=== PATIENT | female | born 1995 | race Caucasian/White ===

== ENCOUNTER 2018-05-23 16:07 | Emergency (ER) | payer BC ==
[2018-05-23 16:40] VITALS: RESP 16; TEMP 98.5
--- NOTE | 2018-05-23 16:58 | ED ---
Female Urogenital HPI - General Chief complaint: Vaginal Bleeding Stated complaint: and spotting Time Seen by Provider: 05/23/18 16:45 Source: patient, RN notes reviewed Mode of arrival: ambulatory Limitations: no limitations - History of Present Illness Initial comments: This a 22-year-old female presents emergency Department chief complaint of vaginal spotting early . Patient states that she is 6 weeks . Patient is A0. Patient states that she has mild lower abdominal cramping she does have urinary frequency which is normal for her no dysuria no hematuria. Patient states it is bright red blood. Patient has not contacted a [facility] at this time. Patient denies any diarrhea, constipation, fever, chills, chest pain or shortness breath. Patient has no current nausea vomiting. - Related Data Home Medications Medication Instructions Recorded Confirmed Kua-Csbu-Wloxp Acid 1 cap PO DAILY 05/23/18 05/23/18 [-U Capsule (formulary)] Allergies Allergy/AdvReac Type Severity Reaction Status Date / Time No Known Allergies Allergy Verified 05/23/18 17:05 Review of Systems ROS Statement: Those systems with pertinent positive or pertinent negative responses have been documented in the HPI. ROS Other: All systems not noted in ROS Statement are negative. Past Medical History Past Medical History: No Reported History History of Any Multi-Drug Resistant Organisms: None Reported Past Surgical History: No Surgical Hx Reported Past Psychological History: No Psychological Hx Reported Smoking Status: Never smoker Past Alcohol Use History: None Reported Past Drug Use History: None Reported General Exam Limitations: no limitations General appearance: alert, in no apparent distress Head exam: Present: atraumatic, normocephalic, normal inspection Respiratory exam: Present: normal lung sounds bilaterally. Absent: respiratory distress, wheezes, rales, rhonchi, stridor Cardiovascular Exam: Present: regular rate, normal rhythm, normal heart sounds. Absent: systolic murmur, diastolic murmur, rubs, gallop, clicks GI/Abdominal exam: Present: soft, normal bowel sounds. Absent: distended, tenderness, guarding, rebound, rigid Neurological exam: Present: alert Skin exam: Present: warm, dry, intact, normal color. Absent: rash Course Vital Signs 05/23/18 16:38 Temperature 98.5 F Pulse Rate 91 Respiratory 16 Rate Blood Pressure 114/71 O2 Sat by Pulse 99 Oximetry Medical Decision Making - Medical Decision Making 22-year-old female presents for spotting early . Patient ultrasound shows possible early gestational sac, no heart rate at this time. Patient is A- blood type and will be receiving RhoGAM. Patient advised follow-up with [facility]. Return parameters were discussed. - Lab Data Result diagrams: 05/23/18 17:37 Lab Results 05/23/18 05/23/18 05/23/18 Range/Units 17:37 17:37 17:55 WBC 8.5 (3.8-10.6) k/uL RBC 4.71 (3.80-5.40) m/uL Hgb 14.6 (11.4-16.0) gm/dL Hct 43.1 (34.0-46.0) % MCV 91.7 (80.0-100.0) fL MCH 31.1 (25.0-35.0) pg MCHC 33.9 (31.0-37.0) g/dL RDW 12.5 (11.5-15.5) % Plt Count 275 (150-450) k/uL Neutrophils % 64 % Lymphocytes % 27 % Monocytes % 5 % Eosinophils % 2 % Basophils % 1 % Neutrophils # 5.4 (1.3-7.7) k/uL Lymphocytes # 2.3 (1.0-4.8) k/uL Monocytes # 0.4 (0-1.0) k/uL Eosinophils # 0.2 (0-0.7) k/uL Basophils # 0.0 (0-0.2) k/uL Urine Color Light Yellow Urine Appearance Clear (Clear) Urine pH 7.0 (5.0-8.0) Ur Specific [place] 1.007 (1.001-1.035) Urine Protein Negative (Negative) Urine Glucose (UA) Negative (Negative) Urine Ketones Negative (Negative) Urine Blood Negative (Negative) Urine Nitrite Negative (Negative) Urine Bilirubin Negative (Negative) Urine Urobilinogen <2.0 (<2.0) mg/dL Ur Leukocyte Esterase Trace H (Negative) Urine RBC <1 (0-5) /hpf Urine WBC <1 (0-5) /hpf Ur Squamous Epith Cells 1 (0-4) /hpf Urine Mucus Rare H (None) /hpf Blood Type A Negative Blood Type Recheck CABO Indicated Disposition Clinical Impression: Threatened miscarriage in early Disposition: HOME SELF-CARE Condition: Stable Instructions (If sedation given, give patient instructions): Threatened Miscarriage (ED) Additional Instructions: Please return to the Emergency Department if symptoms worsen or any other concerns. Is patient prescribed a controlled substance at d/c from ED?: No Referrals: Fern Erazo MD [Primary Care Provider] - 1-2 days Time of Disposition: 18:47
[2018-05-23 17:51] LABS: Basophils % (A) 1 %; Eosinophils # (A) 0.2 k/uL (0-0.7); Eosinophils % (A) 2 %; HCT 43.1 % (34.0-46.0); HGB 14.6 gm/dL (11.4-16.0); Lymphocytes # (A) 2.3 k/uL (1.0-4.8); Lymphocytes % (A) 27 %; MCH 31.1 pg (25.0-35.0); MCHC 33.9 g/dL (31.0-37.0); MCV 91.7 fL (80.0-100.0); Mean Platelet Volume 7.5; Monocytes # (A) 0.4 k/uL (0-1.0); Monocytes % (A) 5 %; Neutrophils # (A) 5.4 k/uL (1.3-7.7); Neutrophils % (A) 64 %; Platelet Count 275 k/uL (150-450); RBC 4.71 m/uL (3.80-5.40); RDW 12.5 % (11.5-15.5); WBC 8.5 k/uL (3.8-10.6)
[2018-05-23 18:05] LABS: Appearance,Urine Clear (Clear); Bilirubin,Urine Negative (Negative); Blood,Urine Negative (Negative); Color,Urine Light Yellow; Glucose,Urine (UA) Negative (Negative); Ketones,Urine Negative (Negative); Leukocyte Esterase,Urine Trace (Negative); Mucus,Urine Rare /hpf; Nitrite,Urine Negative (Negative); Protein,Urine Negative (Negative); RBC,Urine <1 /hpf (0-5); Specific Gravity,Urine 1.007 (1.001-1.035); Squamous Epithelial Cell,Urine 1 /hpf (0-4); Urobilinogen,Urine <2.0 mg/dL (<2.0)
[2018-05-23] MEDS ORDERED: Rhogam IMMUNE GLOBULIN 1,500 UNIT/1 ML IM ONE (18:26)
--- NOTE | 2018-05-23 18:42 | US ---
EXAMINATION TYPE: Transabdominal DATE OF EXAM: 05/23/2018 6:04 PM COMPARISON: NONE CLINICAL HISTORY: Pain. Spotting EXAM PERFORMED: Transvaginal (TV) and Transabdominal (TA) EXAM MEASUREMENTS: GESTATIONAL AGE / DATING Physician Established: Not yet established ( Dates by LMP: (6 weeks/1 days) EDC: 01/15/2019 Dates by First Scan: No previous this is first scan Dates by Current Scan for: (5 weeks/0 days) EDC: 01/23/2019 MATERNAL ANATOMY Uterus: 8.2 x 3.9 x 5.9cm Right Ovary: 3.6 x 2.3 x 2.2 cm Left Ovary: 2.3 x 2.5 x 2.5 cm Post CDS / Adnexa: wnl Presence of free fluid: no Presence of corpus luteal cyst: yes right ovary 2.4 x 2.1 x 1.9cm Presence of subchorionic bleed: No GESTATION / SURVEY MSD: 1.02cm (5 weeks/0 days) Yolk Sac (normal less than 6mm): 2mm IUP: No pole seen at this time. Beta HcG (if available): Not available at this time Gestational sac and yolk sac seen. No pole seen at this time. IMPRESSION: Findings consistent with very early intrauterine . Follow-up is recommended in 14 days to co nfirm a living fetus. Yolk sac is present. No complicating process.
[2018-05-23 19:39] VITALS: BP 122/77; PULSE 69
== END 2018-05-23 19:39 | disposition home or self-care (01) ==
LOC: EC 16:07
DX: O20.0 Threatened abortion (principal); Z3A.01 Less than 8 weeks gestation of pregnancy
CPT/HCPCS: 36415; 86900; 86901; 85025; 86850; 81001; 84702; 76801; 76817; 99284; 96372; J2791

== ENCOUNTER 2019-01-14 16:08 | Inpatient (IN) | payer BC ==
[2019-01-14] MEDS ORDERED: CARBOPROST TROMETHAMINE 250 MCG/ML 1 ML AMP IM PRN (17:31)
[2019-01-14] MEDS ORDERED: TERBUTALINE 1 MG/ML VIAL SQ PRN (17:31)
[2019-01-14] MEDS ORDERED: METHYLERGONOVINE 0.2 MG/ML 1 ML AMP IM PRN (17:31)
[2019-01-14] MEDS ORDERED: OXYTOCIN 10 UNIT/ML 1 ML VIAL IM PRN (17:31)
[2019-01-14] MEDS ORDERED: LIDOCAINE 0.5% (PF) 5 MG/ML (50 ML SDV) SQ PRN (17:31)
[2019-01-14] MEDS ORDERED: OXYTOCIN 30 UNITS/500 ML NS 30 UNIT in SALINE 1 500ML.BAG IV SCH (17:45)
[2019-01-14] MEDS: LACTATED RINGERS 1,000 ML IV SCH ×2 (18:00→23:57)
[2019-01-14 19:19] VITALS: RESP 16
[2019-01-14 19:23] LABS: Basophils # (A) 0.2 k/uL (0-0.2); Basophils % (A) 2 %; Eosinophils # (A) 0.2 k/uL (0-0.7); Eosinophils % (A) 1 %; HCT 36.1 % (34.0-46.0); HGB 12.2 gm/dL (11.4-16.0); Lymphocytes # (A) 1.6 k/uL (1.0-4.8); Lymphocytes % (A) 12 %; MCH 30.3 pg (25.0-35.0); MCHC 33.7 g/dL (31.0-37.0); MCV 89.7 fL (80.0-100.0); Mean Platelet Volume 7.5; Monocytes # (A) 0.7 k/uL (0-1.0); Monocytes % (A) 5 %; Neutrophils # (A) 10.2 k/uL (1.3-7.7); Neutrophils % (A) 79 %; Platelet Count 282 k/uL (150-450); RBC 4.02 m/uL (3.80-5.40); RDW 13.8 % (11.5-15.5)
[2019-01-14 19:34] VITALS: BMI 33.4
[2019-01-14] MEDS ORDERED: SODIUM CHLORIDE 0.9% 100 ML BAG ONE (23:56)
[2019-01-14] MEDS ORDERED: ROPIVACAINE 5MG/ML 20ML VIAL ONE (23:56)
[2019-01-14] MEDS ORDERED: fentaNYL (PF) 50 MCG/ML 5 ML AMP ONE (23:56)
[2019-01-15] MEDS: LACTATED RINGERS 1,000 ML IV SCH ×2 (00:37→01:45)
--- NOTE | 2019-01-15 01:12 | P.HPOB ---
History of Present Illness H&P Date: 01/15/19 Chief Complaint: Spontaneous rupture of membranes This is a 23-year-old female 1 para 0 with an estimated date of confinement of 01/15/2019, estimated gestational age of 39-6/7 weeks, who presented to labor and delivery with complaints of spontaneous rupture membranes at approximately 8 AM on 01/14/2019. She came in later in the evening when this did not go away. Initially it was just small amounts that she was leaking. She denied feeling any regular contractions. She was feeling good movement. Her course has been uncomplicated. labs: Hepatitis B surface antigen-negative RPR-nonreactive Rubella-immune Blood type-A- Antibody screen-initially is negative HIV-nonreactive Hemoglobin-13.1 Toxoplasma screen-negative Random glucose-84 Obstetrical ultrasound-normal anatomy One hour Glucola-78 Group B streptococcus-negative RhoGAM is given at approximately 30 weeks' Obstetrical history: Gynecologic history: No history of sexually transmitted diseases. Social history: She is engaged. She works full-time at [employer]. Review of Systems Constitutional: Denies chills, Denies fever Eyes: denies blurred vision, denies pain Ears, nose, mouth and throat: Denies headache, Denies sore throat Cardiovascular: Denies chest pain, Denies shortness of breath Respiratory: Denies cough Gastrointestinal: Reports abdominal pain (Irregular contractions) Genitourinary: Reports pelvic pain, Reports Musculoskeletal: Reports low back pain Integumentary: Denies pruritus, Denies rash Neurological: Denies numbness, Denies weakness Psychiatric: Denies anxiety, Denies depression Past Medical History Past Medical History: No Reported History History of Any Multi-Drug Resistant Organisms: None Reported Additional Past Surgical History / Comment(s): Rust removed from her right eye when she was 2 years old Past Psychological History: No Psychological Hx Reported Smoking Status: Never smoker Past Alcohol Use History: None Reported Past Drug Use History: None Reported - Past Family History Father Family Medical History: No Reported History Medications and Allergies Home Medications Medication Instructions Recorded Confirmed Type Eam-Wfnd-Gpgfn Acid 1 cap PO DAILY 05/23/18 01/14/19 History [-U Capsule (formulary)] Allergies Allergy/AdvReac Type Severity Reaction Status Date / Time No Known Allergies Allergy Verified 01/14/19 16:26 Exam Osteopathic Statement: *. No significant issues noted on an osteopathic structural exam other than those noted in the History and Physical/Consult. Vital Signs Temp Pulse Resp BP Pulse Ox 01/14/19 17:20 96.8 F L 104 H 16 131/77 97 01/14/19 16:15 96.8 F L 104 H 16 131/77 97 Intake and Output 01/14/19 01/14/19 01/15/19 14:59 22:59 06:59 Other: # Voids 3 Weight 93.894 kg HEENT: Within normal limits Heart: Regular rate and rhythm Lungs: Clear to auscultation bilaterally Abdomen: Cervix: Initially is 2 cm/80%/-1 station with positive amnisure with clear fluid noted. heart tones: Reactive Contractions: Rare on admission Extremities: Negative Homans Results Result Diagrams: 01/14/19 17:48 Abnormal Lab Results - Last 24 Hours (Table) 01/14/19 Range/Units 17:48 WBC 13.0 H (3.8-10.6) k/uL Neutrophils # 10.2 H (1.3-7.7) k/uL Assessment and Plan (1) 39 weeks gestation of Current Visit: Yes Status: Acute Code(s): Z3A.39 - 39 WEEKS GESTATION OF SNOMED Code(s): 07137085 Plan: Admission. Oxytocin augmentation of labor. Antibiotic prophylaxis once she reaches 18 hours of rupture membranes. Epidural anesthesia if desired.
--- NOTE | 2019-01-15 01:16 | P.MSEPDOC ---
Presenting Problems - Arrival Data Date of Arrival on Unit: 01/14/19 Time of Arrival on Unit: 16:09 Mode of Transport: Ambulatory - Complaint OB-Reason for Admission/Chief Complaint: Rule Out SROM Comment: leaking since 0800 this am Medical History - Information : 1 Para: 0 Term: 0 : 0 Abortions: Spontaneous or Elective: 0 Number of Living Children: 0 - Gestational Age Gestational Age by [place] (wks/days): 39 Weeks and 6 Days Review of Systems - Review of Systems Constitutional: No problems Breast: No problems ENT: No problems Cardiovascular: No problems Respiratory: No problems Gastrointestinal: No problems Genitourinary: No problems Musculoskeletal: No problems Neurological: No problems Skin: No problems Vital Signs - Temperature Temperature: 96.8 F Temperature Source: Temporal Artery Scan - Pulse Right Brachial Pulse Rate: 104 Pulse Assessment Method: Automatic Cuff - Respirations Respiratory Rate: 16 Oxygen Delivery Method: Room Air O2 Sat by Pulse Oximetry: 97 - Blood Pressure Right Arm Blood Pressure: 131/77 Blood Pressure Mean: 95 Blood Pressure Source: Automatic Cuff Medical Screen Scoring (Pre) - Cervical Exam Dilation: 1-3 cm = 1 Effacement: More than 50% = 2 Membranes: Ruptured = 3 - Uterine Contractions Frequency: N/A Duration: N/A Intensity: N/A - Maternal Vital Signs Maternal Temperature: N/A Maternal Blood Pressure: N/A Signs of Preeclampsia: N/A Maternal Respirations: N/A - Maternal Trauma Maternal Trauma: N/A - Assessment - Baby A Baseline FHR: 140 Heart Rate - NICHD Category: Category I (Normal) = 0 NST: Reactive Position: N/A Station: N/A - Total Score - Baby A Total Score - Baby A: 6 - Total Score - Baby B Total Score - Baby B: 6 - Total Score - Baby C Total Score - Baby C: 6 - Level of Risk - Baby A Level of Risk - Baby A: Medium (6-9) - Level of Risk - Baby B Level of Risk - Baby B: Medium (6-9) - Level of Risk - Baby C Level of Risk - Baby C: Medium (6-9) Physician Notification (Pre) - Physician Notified Spoke With: freida New Order Received: No - Notification Comment Comment: dr guan given report of pt status and initial refusal for pitocin. pt has since opted to start pitocin for labor but with stipulation that she can stop it at any time if she decides. dr freida de leon and ordered antibiotics for initiation at [address] guan also wants pt to be informed of increased risk of infection without pitocin and also increased risk of due to lack of progress and potential infection. pt has already been informed. camilo de leon. Disposition - Disposition OB Disposition: Admit I agree with the RN Medical Screening Exam: Yes Risk & Benefit of care provided described in d/c instruction: Yes Diagnosis: RELATED CONDITIONS, UNSPECIFIED, THIRD TRIMESTER
[2019-01-15] MEDS ORDERED: AMPICILLIN 2,000 MG in SODIUM CHLORIDE 0.9% 100 ML IVPB STA (01:55)
[2019-01-15] MEDS ORDERED: BENZOCAINE/MENTHOL SPRAY 1 GM/SPRAY AEROSOL TOPICAL PRN (03:32)
[2019-01-15] MEDS ORDERED: LANOLIN CREAM 5 GM TUBE TOPICAL PRN (03:32)
[2019-01-15] MEDS ORDERED: WITCH HAZEL 1 EACH MED..PAD TOPICAL PRN (03:32)
[2019-01-15] MEDS ORDERED: IBUPROFEN 600 MG TAB PO PRN (03:32)
[2019-01-15] MEDS ORDERED: diphenhydrAMINE 50 MG CAP PO PRN (03:32)
[2019-01-15] MEDS ORDERED: SIMETHICONE 80 MG CHEWABLE PO PRN (03:32)
[2019-01-15] MEDS ORDERED: ZOLPIDEM 5 MG TAB PO PRN (03:32)
[2019-01-15] MEDS ORDERED: diphenhydrAMINE 25 MG CAP PO PRN (03:32)
[2019-01-15] MEDS ORDERED: ACETAMINOPHEN TAB 325 MG TAB PO PRN (03:32)
[2019-01-15] MEDS ORDERED: diphenhydrAMINE 50 MG/ML 1 ML VIAL IVP PRN ×2 (03:32)
[2019-01-15] MEDS ORDERED: HYDROCORTISONE 2.5% RECTAL CREAM 30 GM TUBE RECTAL PRN (03:32)
[2019-01-15] MEDS ORDERED: OXYTOCIN 20 UNITS/1000 ML NS 1,000 ML IV SCH (03:32)
--- NOTE | 2019-01-15 03:57 | P.PROBDLV ---
Vaginal Delivery Note - . Vaginal Delivery Note: I was initially called for heart tones in the 50s right after she was sitting up for an epidural. During the test dose of the epidural it was discovered that it was actually a spinal and not an epidural. She had an instant headache and felt numbness in her legs. This did subside. The catheter was withdrawn and the procedure was abandoned. However during this time. She felt a larger gush of fluid and the infant's heart tones went down to the 50s with very slow return to baseline over approximately a 9 minute period of time. At this time a stat section was called and I was in route to the hospital along with Dr. Hoyt. Dr. Hoyt arrived prior to my arrival and assessed the patient. At this point in time the heart tones had come up to baseline and the patient was noted to be 7-8 cm with acceleration noted with scalp stimulation. At this time section was called off and she was monitored. On my arrival, she was noted to be 8-1/2 cm/100%/0 station and heart tones were reactive with good variability and positive accelerations to scalp stimulation. She was continued with observation and in the next hour made no cervical change. I restarted her oxytocin. Approximately 45 minutes later, she stated she was having too much pain and wanted a section. When I rechecked her, she was 9-1/2 cm with a very stretchy cervix and I instructed her to start pushing. With one push, she pushed past the cervix. She eventually brought the baby down to a crown. With one further push the 's head delivered across the perineum in a left occiput anterior lie. I encouraged her to continue pushing but when the left shoulder did not immediately deliver I told her to stop pushing and I rotated the baby in a clockwise fashion so that the right shoulder was delivering. I instructed her to push and the right shoulder did easily deliver followed by the remainder of the baby. Infant was placed on mother's abdomen. Nose and mouth were bulb suctioned. Cord was clamped and cut and was taken to warmer for evaluation. A viable male infant is noted with scores of 9 at 1 minute and 9 at 5 minutes and infant weight of 8 lbs. 15 oz. Placenta delivered shortly thereafter, intact, with a three-vessel cord. Uterus contracted well after oxytocin was given and uterine massage was carried out. Inspection of the perineum revealed a second-degree perineal laceration and a left periurethral laceration. These areas were anesthetized with 1% lidocaine. The second-degree perineal laceration was sutured with 3-0 Vicryl suture in the usual multilayer fashion. The left periurethral laceration is sutured with 2-0 Vicryl suture in a running locked fashion. There was a small right periurethral abrasion but this was noted to be hemostatic. Estimated blood loss is approximately 200 mL's. Both mother and are in stable condition.
[2019-01-15] MEDS ORDERED: AMPICILLIN 1,000 MG in SODIUM CHLORIDE 0.9% 50 ML IVPB SCH (05:56)
[2019-01-15] MEDS ORDERED: CAFFEINE-SODIUM BENZOATE 500 MG in SODIUM CHLORIDE 0.9% 1,000 ML IVPB ONE (06:47)
[2019-01-15] MEDS ORDERED: ROPIVACAINE 100 MG, fentaNYL (PF) 200 MCG in SODIUM CHLORIDE 0.9% 76 ML EPIDURAL ONE (07:52)
[2019-01-15] MEDS: SENNOSIDES-DOCUSATE SODIUM 1 EACH TAB PO SCH ×2 (09:02→22:23)
[2019-01-15] MEDS ORDERED: Rhogam IMMUNE GLOBULIN 1,500 UNIT/1 ML IM ONE (16:51)
[2019-01-16 05:52] LABS: Basophils % (A) 0 %; Eosinophils # (A) 0.2 k/uL (0-0.7); Eosinophils % (A) 2 %; HCT 31.5 % (34.0-46.0); HGB 10.2 gm/dL (11.4-16.0); Lymphocytes # (A) 2.1 k/uL (1.0-4.8); Lymphocytes % (A) 20 %; MCH 29.6 pg (25.0-35.0); MCHC 32.6 g/dL (31.0-37.0); Mean Platelet Volume 7.1; Monocytes # (A) 0.7 k/uL (0-1.0); Monocytes % (A) 6 %; Neutrophils # (A) 7.4 k/uL (1.3-7.7); Neutrophils % (A) 70 %; Platelet Count 233 k/uL (150-450); RBC 3.46 m/uL (3.80-5.40); RDW 13.9 % (11.5-15.5); WBC 10.6 k/uL (3.8-10.6)
--- NOTE | 2019-01-16 08:54 | P.PNOBGVD ---
Subjective - Subjective Principal diagnosis: Status post vaginal delivery day #1 Interval history: The patient is doing well. Lochia is decreasing. Pain is fairly well controlled. She is having some headaches but has not taken anything for them. She is breast-feeding well. Patient reports: Reports appetite normal, Reports voiding normally, Reports pain well controlled, Reports ambulating normally Reading: doing well, nursing well Objective - Latest Vital Signs Latest vital signs: Vital Signs Temp Pulse Resp BP 01/16/19 08:36 98.2 F 84 16 122/75 01/16/19 00:00 98.4 F 83 16 126/79 01/15/19 15:32 97.4 F L 72 16 131/66 Intake and Output 01/15/19 01/16/19 01/16/19 22:59 06:59 14:59 Other: # Voids 1 - Exam Extremities: Present: normal. Absent: tenderness Abdomen: Present: normal appearance, soft. Absent: distention, tenderness Uterus: Present: normal, firm. Absent: tenderness - Labs Labs: Abnormal Lab Results - Last 24 Hours (Table) 01/16/19 Range/Units 05:38 RBC 3.46 L (3.80-5.40) m/uL Hgb 10.2 L (11.4-16.0) gm/dL Hct 31.5 L (34.0-46.0) % Assessment and Plan Assessment: Status post vaginal delivery day #1 (1) 39 weeks gestation of Current Visit: Yes Status: Acute Code(s): Z3A.39 - 39 WEEKS GESTATION OF SNOMED Code(s): 31154383 Plan: Continue with care today. Anticipate discharge home tomorrow.
[2019-01-16] MEDS: SENNOSIDES-DOCUSATE SODIUM 1 EACH TAB PO SCH ×2 (12:04→20:44)
[2019-01-17 08:11] VITALS: BP 114/70; PULSE 90; TEMP 97.9
[2019-01-17] MEDS: SENNOSIDES-DOCUSATE SODIUM 1 EACH TAB PO SCH (08:25)
--- NOTE | 2019-01-17 08:38 | P.DS ---
Providers Date of admission: 01/14/19 17:26 Expected date of discharge: 01/17/19 Attending physician: Gina Mariscal Primary care physician: Stated None - Discharge Diagnosis(es) (1) 39 weeks gestation of Current Visit: Yes Status: Acute Hospital Course: This is a 23-year-old female 1 para 0 at 40-0/7 weeks who presented initially with spontaneous rupture of membranes for almost 12 hours. She underwent oxytocin augmentation of labor and there was an attempt to give her an epidural. This however ended up going into a spinal in the procedure was stopped. She ended up delivering vaginally a viable male with scores of 9 at 1 minute and 9 at 5 minutes and weight of 8 lbs. 15 oz. on 01/15/2019. Her course has been uncomplicated. Lochia is decreasing. Pain is well-controlled. She is breast-feeding without difficulty. Baby's cultures at 48 hours are negative. Vital signs are stable. Abdomen is soft with fundus firm and nontender. Extremities show negative Homans. Impression is status post vaginal delivery day #2. Plan is to discharge home today. Routine instructions are given. She is not taking anything for pain. She has a breast pump at home. She is advised follow-up in the office in 6 weeks for a check. She is advised to call the office if she has any further questions or concerns prior to her appointment time. Procedures: Oxytocin augmentation of labor Spontaneous vaginal delivery of a viable male infant on 01/15/2019 Patient Condition at Discharge: Stable Plan - Discharge Summary New Discharge Prescriptions: No Action Evp-Fnev-Vrrrq Acid [-U Capsule (formulary)] 1 cap PO DAILY Discharge Medication List Ymk-Glai-Omrbw Acid [-U Capsule (formulary)] 1 cap PO DAILY 05/23/18 [History] Follow up Appointment(s)/Referral(s): Gina Mariscal DO [Doctor of Osteopathic Medicine] - 6 Weeks Activity/Diet/Wound Care/Special Instructions: Instructions 1. Do not begin any exercise program for 3 weeks. 2. Do not resume sexual relations for 3 weeks or longer if uncomfortable. 3. You may take tub baths or showers at any time. 4. You may use tampons if desired after 3 weeks. 5. Keep the area of episiotomy (stitches) clean and dry. 6. If you are not nursing, wear a good fitting, supportive bra during the day and limit fluid intake for at least 1 week to prevent breast engorgement. 7. Call the office, [phone], within the next week to make appointment for your 6 week checkup if it has not already been made. 8. Report any of the following occurrences to the doctor promptly: a. Heavy, excessive bleeding b. Chills, fever c. Burning or frequency of urination d. Pain or redness and breasts if nursing e. Increasing pain or swelling in episiotomy (stitches). In addition to the above instructions, the following additional should be followed: 1. No heavy lifting or straining (exercising) until after 6 week checkup. 2. Keep abdominal incision clean and dry: You may wear a dressing if more comfortable. 3. Make office appointment for 10 days after going home or as instructed by her doctor. Discharge Disposition: HOME SELF-CARE
[2019-01-17] MEDS ORDERED: DIPH,PERTUS(ACELL)TETVAC-LF 0.5 ML VIAL IM ONE (12:33)
== END 2019-01-17 15:58 | disposition home or self-care (01) | DRG 807 ==
LOC: FBPOP 16:08 → 4FBP 17:26
PROVIDERS: ADMIT Obstetrics & Gynecology; ATTEND Obstetrics & Gynecology
PROC: 10E0XZZ Delivery of Products of Conception, External Approach (ICD-10-PCS; principal; 2019-01-15)
PROC: 0KQM0ZZ Repair Perineum Muscle, Open Approach (ICD-10-PCS; 2019-01-15)
PROC: 3E033VJ Introduction of Other Hormone into Peripheral Vein, Percutaneous Approach (ICD-10-PCS; 2019-01-15)
PROC: 0UQMXZZ Repair Vulva, External Approach (ICD-10-PCS; 2019-01-15)
DX: O70.1 Second degree perineal laceration during delivery (principal); Z37.0 Single live birth; O71.82 Other specified trauma to perineum and vulva; O29.43 Spinal and epidural anesthesia induced headache during pregnancy, third trimester; Z3A.40 40 weeks gestation of pregnancy; O42.02 Full-term premature rupture of membranes, onset of labor within 24 hours of rupture; Z53.8 Procedure and treatment not carried out for other reasons
CPT/HCPCS: 59025; 85025; 85461; 86850; 86870; 86880; 86900; 86901; 88307; 90715